=== PATIENT | female | born 1950 | race Caucasian/White ===

== ENCOUNTER 2018-07-27 21:33 | Emergency (ER) | payer MEDICARE, OTHER ==
--- NOTE | 2018-07-27 21:45 | ED Physician Documentation ---
General Adult - HISTORIAN Historian: patient - HPI Stated Complaint: coughing blood s/p lung bx Chief Complaint: General Adult Onset: hours Timing: still present Severity: moderate Further Comments: yes (Pt is a 68 yo female with hx of COPD, a former smoker, who was found to have a lung mass at a visit here to the ER last week. 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 Pt coughed some blood into a tissue and was concerned about it. Pt has had no other sx, no dizziness, no sob apart from here usual copd (pt is on [place] O2), no chest pain.) - ROS CONST: no problems EYES/ENT: none CVS/RESP: other (coughed blood after lung bx earlier today) GI/: none MS/SKIN/LYMPH: none - PAST HX Past History: COPD, other (lung mass seen on x-ray last week) Allergies/Adverse Reactions: Allergies Allergy/AdvReac Type Severity Reaction Status Date / Time No Known Allergies Allergy Verified 07/27/18 21:55 Home Medications: Ambulatory Orders Medication Instructions Recorded Albuterol Sulfate [Proair HFA] 1 puff INH PRN PRN 07/29/15 Metoprolol Tartrate [Lopressor] 50 mg PO DAILY 07/29/15 Calcium Carbonate [Calcium] 600 mg PO DAILY 07/15/18 Multivitamin/Iron/Folic Acid 1 tab PO D 07/15/18 [Centrum Adults Tablet] Umeclidinium Tabor [Incruse 1 tab PO D 07/15/18 Ellipta] - SOCIAL HX Smoking History: quit greater than 1 year - FAMILY HX Family History: No - VITAL SIGNS Vital Signs: Vital Signs Temp Pulse Resp BP Pulse Ox 127/78 07/15/18 22:40 - REVIEWED ASSESSMENTS Nursing Assessment Reviewed: Yes Vitals Reviewed: Yes Progress - Progress Progress: CXR: Clinical history: Hemoptysis. Findings: Examination of the chest in PA and lateral views with comparison to examination of 07/15/2018 demonstrates mass adjacent to left hilum without change. There are atelectatic changes in lung bases. Lungs are hyperinflated. Cardiovascular and mediastinal silhouettes are stable. Impression: 1. Left perihilar mass. 2. No significant change. f/u pulmonology General Adult Physical Exam - PHYSICAL EXAM GENERAL APPEARANCE: mild distress (anxious) EENT: pharynx normal NECK: normal inspection, supple RESPIRATORY: no resp distress, chest non-tender, other (distant breath sounds) CVS: reg rate & rhythm, heart sounds normal ABDOMEN: soft, no organomegaly, normal bowel sounds SKIN: warm/dry, normal color EXTREMITIES: non-tender, normal range of motion, no evidence of injury NEURO: oriented X3, motor nml, sensation nml Discharge Clincal Impression: hemoptysis s/p lung bx today Referrals: Zane Webster MD [Primary Care Provider] - Condition: Stable Disposition: 01 HOME, SELF-CARE Decision to Admit: NO Decision Time: 22:29
[2018-07-27 22:05] VITALS: BP 137/80
--- NOTE | 2018-07-28 06:36 | Diagnostic Imaging Report ---
[place] [facility] [address] [facility].[address] [id number] Report Submission Date: Jul 27, 2018 10:17:56 PM CDT Patient Study Name: NOE NOLASCO Date: Jul 27, 2018 9:52:11 PM CDT Modality Type: DX Gender: F Description: CHEST : 48 Institution: [facility] Physician: SEA CALL[place]AY PA and lateral chest Clinical history: Hemoptysis. Findings: Examination of the chest in PA and lateral views with comparison to examination of 07/15/2018 demonstrates mass adjacent to left hilum without change. There are atelectatic changes in lung bases. Lungs are hyperinflated. Cardiovascular and mediastinal silhouettes are stable. Impression: 1. Left perihilar mass. 2. No significant change. Electronically signed on Jul 27, 2018 10:17:56 PM CDT by: Marcio CORTEZ
== END 2018-07-27 22:20 | disposition home or self-care (01) ==
LOC: ED 21:33
DX: R04.2 Hemoptysis (principal); Z98.890 Other specified postprocedural states
CPT/HCPCS: 71046; 99283